=== PATIENT | male | born 1995 | race Caucasian/White ===

== ENCOUNTER 2017-04-10 20:29 | Emergency (ER) | payer OTHER ==
[~2017-04-10] VITALS: Ht 177.8 cm; Wt 84.1 kg
[2017-04-10 20:30] VITALS: BP 144/64; TEMP 99.1
[2017-04-10] MEDS ORDERED: CEPHALEXIN500 M1 PO (21:16)
[2017-04-10 21:21] VITALS: PULSE 78
== END 2017-04-10 21:22 | disposition home or self-care (01) ==
LOC: COL.ER 20:29
DX: S40.022A Contusion of left upper arm, initial encounter (principal); W26.8XXA Contact with other sharp object(s), not elsewhere classified, initial encounter

== ENCOUNTER 2017-04-14 12:20 | Emergency (ER) | payer OTHER ==
[~2017-04-14] VITALS: Ht 177.8 cm; Wt 88.5 kg
[~2017-04-14 12:20] MED LIST: CEPHALEXIN500 M1 PO
[2017-04-14 12:21] VITALS: BP 166/99; PULSE 89; TEMP 97.9
== END 2017-04-14 12:47 | disposition home or self-care (01) ==
LOC: COL.ER 12:20
DX: S60.222A Contusion of left hand, initial encounter (principal); R20.2 Paresthesia of skin; X58.XXXA Exposure to other specified factors, initial encounter